=== PATIENT | female | born 2000 | race American Indian/Alaskan Native ===

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

== ENCOUNTER 2019-05-19 12:39 | Emergency (ER) | payer MEDICAID, OTHER ==
[2019-05-19 12:58] VITALS: BP 129/75
--- NOTE | 2019-05-19 12:58 | Event Note ---
ED Screening Note ED Screening Note: pt presents for heavy vaginal bleeding that began yesterday states she has irregular cycles states she is changing every hour lower back pain no abd pain no n/v/d no fever no dysuria PMHx anemia allergy to PCN PMHx schizophrenia and bipolar -states she is taking them daily no SI/HI, no hallucinations non smoker non drinker no drug use This initial assessment/diagnostic orders/clinical plan/treatment(s) is/are subject to change based on patients health status, clinical progression and re- assessment by fellow clinical providers in the ED. Further treatment and workup at subsequent clinical providers discretion. Patient/guardian urged not to elope from the ED as their condition may be serious if not clinically assessed and managed. Initial orders include: labs, UA
[2019-05-19 13:51] LABS: Basophils % (Auto) 0.7 % (0.0-1.8); Eosinophils % (Auto) 0.7 % (0.0-4.3); Hematocrit 28.6 % (30.3-42.9); Hemoglobin 8.7 gm/dl (10.1-14.3); Lymphocytes # (Auto) 0.9 K/mm3 (1.2-5.4); Lymphocytes % (Auto) 17.9 % (13.4-35.0); Mean Corpuscular HGB Conc 30 % (30-34); Monocytes # (Auto) 0.4 K/mm3 (0.0-0.8); Platelet Count 296 K/mm3 (140-440)
[2019-05-19 13:59] LABS: Mean Corpuscular Volume 68 fl (79-97)
[2019-05-19 14:12] LABS: BUN/Creatinine Ratio 17; Blood Urea Nitrogen 12 mg/dL (7-17); Calcium 8.9 mg/dL (8.4-10.2); Hemolysis Index 2
--- NOTE | 2019-05-19 15:06 | Emergency Department Report ---
ED General Adult HPI - General Chief complaint: Vaginal Bleeding Stated complaint: VAG BLEEDING Time Seen by Provider: 05/19/19 12:55 Source: patient Mode of arrival: Ambulatory Limitations: No Limitations - History of Present Illness Initial comments: The patient presents to the emergency department with a chief complaint of increased vaginal bleeding. The patient states she is currently on her cycle and she is having significant past medical clots and dark blood without pain. Patient states this is very unusual for her cycles and denies any use of any [id number] medications, herbs, or control pills. Patient denies any vaginal trauma or vaginal instrumentation -: Sudden Severity scale (0 -10): 0 Improves with: none Worsens with: none Associated Symptoms: denies other symptoms Treatments Prior to Arrival: none - Related Data Home Medications Medication Instructions Recorded Confirmed Last Taken Ciprofloxacin HCl [Ciprofloxacin 500 mg PO Q12H 12/14/17 01/05/18 12/12/17 13:00 TAB] 1 Ferrous Sulfate 325 mg PO TID 12/14/17 01/05/18 01/05/18 08:00 Nitrofurantoin [place]/M-Cryst 100 mg PO DAILY 01/05/18 01/05/18 01/05/18 08:00 [Macrobid CAP] Vit D3/Folic Acid/B2/B6/B12 1 each PO DAILY 01/05/18 01/05/18 1 Day Ago [Folgard Tablet] ~01/04/18 Previous Rx's Medication Instructions Recorded Last Taken Type Fluconazole [Diflucan TAB] 150 mg PO ONCE #1 tablet 08/07/18 Unknown Rx Valacyclovir HCl [Valtrex] 1,000 mg PO BID #20 tab 08/07/18 Unknown Rx Ketorolac [Toradol] 10 mg PO Q6H PRN #12 tablet 05/19/19 Unknown Rx Allergies Allergy/AdvReac Type Severity Reaction Status Date / Time [place] And Derivatives Allergy Itching Verified 12/14/17 17:16 ED Review of Systems ROS: Stated complaint: VAG BLEEDING Other details as noted in HPI Comment: All other systems reviewed and negative Constitutional: denies: chills, fever Eyes: denies: eye pain, eye discharge, vision change ENT: denies: ear pain, throat pain Respiratory: denies: cough, shortness of breath, wheezing Cardiovascular: denies: chest pain, palpitations Endocrine: no symptoms reported Gastrointestinal: denies: abdominal pain, nausea, diarrhea Genitourinary: denies: urgency, dysuria, discharge Musculoskeletal: denies: back pain, joint swelling, arthralgia Skin: denies: rash, lesions Neurological: denies: headache, weakness, paresthesias Psychiatric: denies: anxiety, depression Hematological/Lymphatic: denies: easy bleeding, easy bruising ED Past Medical Hx - Past Medical History Previous Medical History?: Yes Hx Hypertension: No Hx Diabetes: No Hx Deep Vein Thrombosis: No Hx Renal Disease: Yes Hx Sickle Cell Disease: No Hx Seizures: No Hx Psychiatric Treatment: Yes (schizophrenia, bipolar) Hx Asthma: No Hx HIV: No Additional medical history: anemia - Surgical History Past Surgical History?: No - Social History Smoking Status: Never Smoker Substance Use Type: None - Medications Home Medications: Home Medications Medication Instructions Recorded Confirmed Last Taken Type Ciprofloxacin HCl [Ciprofloxacin 500 mg PO Q12H 12/14/17 01/05/18 12/12/17 13:00 History TAB] 1 Ferrous Sulfate 325 mg PO TID 12/14/17 01/05/18 01/05/18 08:00 History Nitrofurantoin [place]/M-Cryst 100 mg PO DAILY 01/05/18 01/05/18 01/05/18 08:00 History [Macrobid CAP] Vit D3/Folic Acid/B2/B6/B12 1 each PO DAILY 01/05/18 01/05/18 1 Day Ago History [Folgard Tablet] ~01/04/18 Fluconazole [Diflucan TAB] 150 mg PO ONCE #1 tablet 08/07/18 Unknown Rx Valacyclovir HCl [Valtrex] 1,000 mg PO BID #20 tab 08/07/18 Unknown Rx Ketorolac [Toradol] 10 mg PO Q6H PRN #12 tablet 05/19/19 Unknown Rx ED Physical Exam - General Limitations: No Limitations General appearance: alert, in no apparent distress - Head Head exam: Present: atraumatic, normocephalic - Eye Eye exam: Present: normal appearance, PERRL, EOMI - ENT ENT exam: Present: mucous membranes moist - Neck Neck exam: Present: normal inspection - Respiratory Respiratory exam: Present: normal lung sounds bilaterally. Absent: respiratory distress - Cardiovascular Cardiovascular Exam: Present: regular rate, normal rhythm. Absent: systolic murmur, diastolic murmur, rubs, gallop - GI/Abdominal GI/Abdominal exam: Present: soft, normal bowel sounds. Absent: distended, tenderness - External exam: Present: other (deferred) Speculum exam: Present: other (deferred) Bi-manual exam: Present: other (deferred) - Extremities Exam Extremities exam: Present: normal inspection - Back Exam Back exam: Present: normal inspection - Neurological Exam Neurological exam: Present: alert, oriented X3 - Psychiatric Psychiatric exam: Present: normal affect, normal mood - Skin Skin exam: Present: warm, dry, intact, normal color. Absent: rash ED Course Vital Signs 05/19/19 12:55 Temperature 98 F Pulse Rate 124 H Respiratory 16 Rate Blood Pressure 129/75 O2 Sat by Pulse 99 Oximetry ED Medical Decision Making - Lab Data Result diagrams: 05/19/19 13:30 05/19/19 13:30 Lab Results 05/19/19 05/19/19 05/19/19 Range/Units 13:30 13:30 13:30 WBC 4.9 (4.5-11.0) K/mm3 RBC 4.20 (3.65-5.03) M/mm3 Hgb 8.7 L (10.1-14.3) gm/dl Hct 28.6 L (30.3-42.9) % MCV 68 L (79-97) fl MCH 21 L (28-32) pg MCHC 30 (30-34) % RDW 19.0 H (13.2-15.2) % Plt Count 296 (140-440) K/mm3 Lymph % (Auto) 17.9 (13.4-35.0) % [place] % (Auto) 9.0 H (0.0-7.3) % Eos % (Auto) 0.7 (0.0-4.3) % Baso % (Auto) 0.7 (0.0-1.8) % Lymph # 0.9 L (1.2-5.4) K/mm3 [place] # 0.4 (0.0-0.8) K/mm3 Eos # 0.0 (0.0-0.4) K/mm3 Baso # 0.0 (0.0-0.1) K/mm3 Seg Neutrophils % 71.7 H (40.0-70.0) % Seg Neutrophils # 3.5 (1.8-7.7) K/mm3 Sodium 139 (137-145) mmol/L Potassium 3.9 (3.6-5.0) mmol/L Chloride 104.6 (98-107) mmol/L Carbon Dioxide 24 (22-30) mmol/L Anion Gap 14 mmol/L BUN 12 (7-17) mg/dL Creatinine 0.7 (0.7-1.2) mg/dL Estimated GFR > 60 ml/min BUN/Creatinine Ratio 17 % Glucose 96 (65-100) mg/dL Calcium 8.9 (8.4-10.2) mg/dL HCG, Qual Negative (Negative) Urine Color (Yellow) Urine Turbidity (Clear) Urine pH (5.0-7.0) Ur Specific [place] (1.003-1.030) Urine Protein (Negative) mg/dL Urine Glucose (UA) (Negative) mg/dL Urine Ketones (Negative) mg/dL Urine Blood (Negative) Urine Nitrite (Negative) Urine Bilirubin (Negative) Urine Urobilinogen (<2.0) mg/dL Ur Leukocyte Esterase (Negative) Urine WBC (Auto) (0.0-6.0) /HPF Urine RBC (Auto) (0.0-6.0) /HPF U Epithel Cells (Auto) (0-13.0) /HPF Urine Mucus /HPF Urine Yeast (Budding) /HPF Urine Sperm (STUDIO COORDINATOR) /HPF 05/19/19 Range/Units 14:09 WBC (4.5-11.0) K/mm3 RBC (3.65-5.03) M/mm3 Hgb (10.1-14.3) gm/dl Hct (30.3-42.9) % MCV (79-97) fl MCH (28-32) pg MCHC (30-34) % RDW (13.2-15.2) % Plt Count (140-440) K/mm3 Lymph % (Auto) (13.4-35.0) % [place] % (Auto) (0.0-7.3) % Eos % (Auto) (0.0-4.3) % Baso % (Auto) (0.0-1.8) % Lymph # (1.2-5.4) K/mm3 [place] # (0.0-0.8) K/mm3 Eos # (0.0-0.4) K/mm3 Baso # (0.0-0.1) K/mm3 Seg Neutrophils % (40.0-70.0) % Seg Neutrophils # (1.8-7.7) K/mm3 Sodium (137-145) mmol/L Potassium (3.6-5.0) mmol/L Chloride (98-107) mmol/L Carbon Dioxide (22-30) mmol/L Anion Gap mmol/L BUN (7-17) mg/dL Creatinine (0.7-1.2) mg/dL Estimated GFR ml/min BUN/Creatinine Ratio % Glucose (65-100) mg/dL Calcium (8.4-10.2) mg/dL HCG, Qual (Negative) Urine Color Yellow (Yellow) Urine Turbidity Slightly-cloudy (Clear) Urine pH 5.0 (5.0-7.0) Ur Specific [place] 1.031 H (1.003-1.030) Urine Protein 30 mg/dl (Negative) mg/dL Urine Glucose (UA) Neg (Negative) mg/dL Urine Ketones Neg (Negative) mg/dL Urine Blood Lg (Negative) Urine Nitrite Neg (Negative) Urine Bilirubin Neg (Negative) Urine Urobilinogen < 2.0 (<2.0) mg/dL Ur Leukocyte Esterase Tr (Negative) Urine WBC (Auto) 23.0 H (0.0-6.0) /HPF Urine RBC (Auto) > 182.0 (0.0-6.0) /HPF U Epithel Cells (Auto) 4.0 (0-13.0) /HPF Urine Mucus 2+ /HPF Urine Yeast (Budding) 1+ /HPF Urine Sperm Few (STUDIO COORDINATOR) /HPF - Radiology Data Radiology results: report reviewed - Medical Decision Making discussed results with patient Critical care attestation.: If time is entered above; I have spent that time in minutes in the direct care of this critically ill patient, excluding procedure time. ED Disposition Clinical Impression: DUB (dysfunctional uterine bleeding) Disposition: DC-01 TO HOME OR SELFCARE Is pt being admited?: No Does the pt Need Aspirin: No Condition: Stable Instructions: Dysfunctional Uterine Bleeding (ED) Additional Instructions: return if worse Referrals: MELANIE GREENBERG MD [Primary Care Provider] - 3-5 Days [facility] [Provider Group] - 3-5 Days Time of Disposition: 16:10
[2019-05-19 15:15] LABS: Bilirubin,Urine NEG (Negative); Blood,Urine LG (Negative); Color,Urine Yellow (Yellow); Mucus,Urine 2+ /HPF; Sperm,Urine FEW /HPF (NP); Urobilinogen,Urine < 2.0 mg/dL (<2.0)
[2019-05-19 15:17] LABS: RBC,Urine > 182.0 /HPF (0.0-6.0)
--- NOTE | 2019-05-19 15:51 | Ultrasound Report ---
ULTRASOUND PELVIC COMPLETE ULTRASOUND TRANSVAGINAL HISTORY: Vaginal bleeding TECHNIQUE: Transabdominal and transvaginal ultrasound with color Doppler imaging. COMPARISON: None. FINDINGS: The uterus is anteflexed and measures 8.3 x 4.2 x 5.5 cm. No uterine mass is identified. Normal cervi x. The endometrial stripe is unremarkable measuring 5 mm. The ovaries are normal size, contour and echotexture. No adnexal cyst or mass. The right ovary measur es 2.5 x 2.0 x 2.5 cm. The left ovary measures 3.4 x 2.1 x 3.3 cm. Trace free pelvic fluid is likely physiologic. IMPRESSION: Unremarkable pelvic ultrasounds. Signer Name: Valdez Tyler Jr, MD Signed: 05/19/2019 3:47 PM Workstation Name: [id number]
== END 2019-05-19 16:15 | disposition home or self-care (01) ==
LOC: ED 12:39
DX: N93.8 Other specified abnormal uterine and vaginal bleeding (principal); F31.9 Bipolar disorder, unspecified; F20.9 Schizophrenia, unspecified; Z86.2 Personal history of diseases of the blood and blood-forming organs and certain disorders involving the immune mechanism; Z91.018 Allergy to other foods; Z79.899 Other long term (current) drug therapy
CPT/HCPCS: 36415; 76830; 76856; 80048; 81001; 84703; 85025; 87086

== ENCOUNTER 2019-07-28 04:27 | Emergency (ER) | payer MEDICAID ==
[2019-07-28 04:46] VITALS: BP 115/62
[2019-07-28 05:25] LABS: Basophils % (Auto) 0.7 % (0.0-1.8); Eosinophils # (Auto) 0.1 K/mm3 (0.0-0.4); Eosinophils % (Auto) 1.3 % (0.0-4.3); Lymphocytes % (Auto) 23.1 % (13.4-35.0); Mean Corpuscular HGB Conc 30 % (30-34); Monocytes # (Auto) 0.2 K/mm3 (0.0-0.8); Monocytes % (Auto) 5.6 % (0.0-7.3); Platelet Count 314 K/mm3 (140-440); Red Blood Count 4.39 M/mm3 (3.65-5.03); Red Cell Distribution Width 18.1 % (13.2-15.2)
[2019-07-28 05:26] LABS: Hematocrit 29.1 % (30.3-42.9); Hemoglobin 8.7 gm/dl (10.1-14.3); Mean Corpuscular Volume 66 fl (79-97)
[2019-07-28 05:42] LABS: Alanine Aminotransferase 9 units/L (7-56); Albumin 4.1 g/dL (3.9-5); BUN/Creatinine Ratio 17; Blood Urea Nitrogen 10 mg/dL (7-17); Calcium 8.6 mg/dL (8.4-10.2); Hemolysis Index 4
--- NOTE | 2019-07-28 06:27 | XRay Report ---
CHEST 1 VIEW 07/28/2019 6:11 AM INDICATION / CLINICAL INFORMATION: Chest Pain. COMPARISON: None available. FINDINGS: SUPPORT DEVICES: None. HEART / MEDIASTINUM: No significant abnormality. LUNGS / PLEURA: No significant pulmonary or pleural abnormality. No pneumothorax. ADDITIONAL FINDINGS: Mild right convex scoliosis of the thoracolumbar spine. IMPRESSION: 1. No acute findings. Signer Name: Yordy Cruz MD Signed: 07/28/2019 6:23 AM Workstation Name: [id number]
[2019-07-28] MEDS ORDERED: ALUM-MAG HYDROXIDE-SIMETHICONE 200-200-20MG/5ML ORAL LIQD 30 ML PO ONE (06:31)
[2019-07-28] MEDS ORDERED: DICYCLOMINE 20 MG TAB PO ONE (06:31)
[2019-07-28] MEDS ORDERED: LIDOCAINE VISCOUS 2% 15 ML ORAL LIQD PO ONE (06:31)
--- NOTE | 2019-07-28 06:34 | Emergency Department Report ---
ED Abdominal Pain HPI - General Chief Complaint: Chest Pain Stated Complaint: CP/ABD PAIN/NAUSEA Time Seen by Provider: 07/28/19 05:56 Source: patient Mode of arrival: Ambulatory Limitations: No Limitations - History of Present Illness Initial Comments: Patient is a 18-year-old female who presents the emergency room with complaints of upper abdominal pain for 3 days. she states she has associated urinary frequency. She denies any nausea, vomiting, diarrhea, fever, dysuria, any other symptoms. she states that she had a normal bowel movement today. she denies any surgeries on her abdomen. She states her last menstrual cycle was in May; she states she has abnormal cycles. She denies any past medical history. she states she has an allergy to penicillin. - Related Data Home Medications Medication Instructions Recorded Confirmed Last Taken Ciprofloxacin HCl [Ciprofloxacin 500 mg PO Q12H 12/14/17 01/05/18 12/12/17 13:00 TAB] 1 Ferrous Sulfate 325 mg PO TID 12/14/17 01/05/18 01/05/18 08:00 Nitrofurantoin [place]/M-Cryst 100 mg PO DAILY 01/05/18 01/05/18 01/05/18 08:00 [Macrobid CAP] Vit D3/Folic Acid/B2/B6/B12 1 each PO DAILY 01/05/18 01/05/18 1 Day Ago [Folgard Tablet] ~01/04/18 Previous Rx's Medication Instructions Recorded Last Taken Type Fluconazole [Diflucan TAB] 150 mg PO ONCE #1 tablet 08/07/18 Unknown Rx Valacyclovir HCl [Valtrex] 1,000 mg PO BID #20 tab 08/07/18 Unknown Rx Ketorolac [Toradol] 10 mg PO Q6H PRN #12 tablet 05/19/19 Unknown Rx Famotidine [Pepcid] 40 mg PO QHS #30 tablet 07/28/19 Unknown Rx Ondansetron [Zofran Odt] 4 mg PO Q8HR PRN #10 tab.rapdis 07/28/19 Unknown Rx cephALEXin [Keflex] 500 mg PO BID 7 Days #14 cap 07/28/19 Unknown Rx Allergies Allergy/AdvReac Type Severity Reaction Status Date / Time [place] And Derivatives Allergy Itching Verified 12/14/17 17:16 ED Review of Systems ROS: Stated complaint: CP/ABD PAIN/NAUSEA Other details as noted in HPI Comment: All other systems reviewed and negative ED Past Medical Hx - Past Medical History Hx Hypertension: No Hx Diabetes: No Hx Deep Vein Thrombosis: No Hx Renal Disease: Yes Hx Sickle Cell Disease: No Hx Seizures: No Hx Psychiatric Treatment: Yes (bipolar) Hx Asthma: No Hx HIV: No Additional medical history: anemia - Surgical History Past Surgical History?: No - Social History Smoking Status: Never Smoker Substance Use Type: None - Medications Home Medications: Home Medications Medication Instructions Recorded Confirmed Last Taken Type Ciprofloxacin HCl [Ciprofloxacin 500 mg PO Q12H 12/14/17 01/05/18 12/12/17 13:00 History TAB] 1 Ferrous Sulfate 325 mg PO TID 12/14/17 01/05/18 01/05/18 08:00 History Nitrofurantoin [place]/M-Cryst 100 mg PO DAILY 01/05/18 01/05/18 01/05/18 08:00 H istory [Macrobid CAP] Vit D3/Folic Acid/B2/B6/B12 1 each PO DAILY 01/05/18 01/05/18 1 Day Ago History [Folgard Tablet] ~01/04/18 Fluconazole [Diflucan TAB] 150 mg PO ONCE #1 tablet 08/07/18 Unknown Rx Valacyclovir HCl [Valtrex] 1,000 mg PO BID #20 tab 08/07/18 Unknown Rx Ketorolac [Toradol] 10 mg PO Q6H PRN #12 tablet 05/19/19 Unknown Rx Famotidine [Pepcid] 40 mg PO QHS #30 tablet 07/28/19 Unknown Rx Ondansetron [Zofran Odt] 4 mg PO Q8HR PRN #10 tab.rapdis 07/28/19 Unknown Rx cephALEXin [Keflex] 500 mg PO BID 7 Days #14 cap 07/28/19 Unknown Rx ED Physical Exam - General Limitations: No Limitations General appearance: alert, in no apparent distress - Head Head exam: Present: atraumatic, normocephalic - Eye Eye exam: Present: normal appearance - ENT ENT exam: Present: mucous membranes moist - Respiratory Respiratory exam: Present: normal lung sounds bilaterally. Absent: respiratory distress, wheezes, rales, rhonchi, stridor, chest wall tenderness, accessory muscle use, decreased breath sounds, prolonged expiratory - Cardiovascular Cardiovascular Exam: Present: regular rate, normal rhythm, normal heart sounds. Absent: systolic murmur, rubs, gallop - GI/Abdominal GI/Abdominal exam: Present: soft, normal bowel sounds. Absent: distended, tenderness, guarding, rebound, rigid - Neurological Exam Neurological exam: Present: alert, oriented X3 - Psychiatric Psychiatric exam: Present: normal affect, normal mood - Skin Skin exam: Present: warm, dry, intact ED Course Vital Signs 07/28/19 04:40 Temperature 98.7 F Pulse Rate 90 Respiratory 18 Rate Blood Pressure 115/62 O2 Sat by Pulse 100 Oximetry ED Medical Decision Making - Lab Data Result diagrams: 07/28/19 04:58 07/28/19 04:58 Lab Results 07/28/19 07/28/19 07/28/19 Range/Units 04:58 04:58 04:58 WBC 4.4 L (4.5-11.0) K/mm3 RBC 4.39 (3.65-5.03) M/mm3 Hgb 8.7 L (10.1-14.3) gm/dl Hct 29.1 L (30.3-42.9) % MCV 66 L (79-97) fl MCH 20 L (28-32) pg MCHC 30 (30-34) % RDW 18.1 H (13.2-15.2) % Plt Count 314 (140-440) K/mm3 Lymph % (Auto) 23.1 (13.4-35.0) % [place] % (Auto) 5.6 (0.0-7.3) % Eos % (Auto) 1.3 (0.0-4.3) % Baso % (Auto) 0.7 (0.0-1.8) % Lymph # 1.0 L (1.2-5.4) K/mm3 [place] # 0.2 (0.0-0.8) K/mm3 Eos # 0.1 (0.0-0.4) K/mm3 Baso # 0.0 (0.0-0.1) K/mm3 Seg Neutrophils % 69.3 (40.0-70.0) % Seg Neutrophils # 3.0 (1.8-7.7) K/mm3 Sodium 139 (137-145) mmol/L Potassium 3.6 (3.6-5.0) mmol/L Chloride 104.9 (98-107) mmol/L Carbon Dioxide 25 (22-30) mmol/L Anion Gap 13 mmol/L BUN 10 (7-17) mg/dL Creatinine 0.6 L (0.7-1.2) mg/dL Estimated GFR > 60 ml/min BUN/Creatinine Ratio 17 % Glucose 155 H (65-100) mg/dL Calcium 8.6 (8.4-10.2) mg/dL Total Bilirubin 0.30 (0.1-1.2) mg/dL AST 11 (5-40) units/L ALT 9 (7-56) units/L Alkaline Phosphatase 59 (35-129) units/L Total Protein 7.9 (6.3-8.2) g/dL Albumin 4.1 (3.9-5) g/dL Albumin/Globulin Ratio 1.1 % HCG, Qual Negative (Negative) Urine Color (Yellow) Urine Turbidity (Clear) Urine pH (5.0-7.0) Ur Specific [place] (1.003-1.030) Urine Protein (Negative) mg/dL Urine Glucose (UA) (Negative) mg/dL Urine Ketones (Negative) mg/dL Urine Blood (Negative) Urine Nitrite (Negative) Urine Bilirubin (Negative) Urine Urobilinogen (<2.0) mg/dL Ur Leukocyte Esterase (Negative) Urine WBC (Auto) (0.0-6.0) /HPF Urine RBC (Auto) (0.0-6.0) /HPF U Epithel Cells (Auto) (0-13.0) /HPF Urine Bacteria (Auto) (Negative) /HPF Urine Mucus /HPF 07/28/19 Range/Units Unknown WBC (4.5-11.0) K/mm3 RBC (3.65-5.03) M/mm3 Hgb (10.1-14.3) gm/dl Hct (30.3-42.9) % MCV (79-97) fl MCH (28-32) pg MCHC (30-34) % RDW (13.2-15.2) % Plt Count (140-440) K/mm3 Lymph % (Auto) (13.4-35.0) % [place] % (Auto) (0.0-7.3) % Eos % (Auto) (0.0-4.3) % Baso % (Auto) (0.0-1.8) % Lymph # (1.2-5.4) K/mm3 [place] # (0.0-0.8) K/mm3 Eos # (0.0-0.4) K/mm3 Baso # (0.0-0.1) K/mm3 Seg Neutrophils % (40.0-70.0) % Seg Neutrophils # (1.8-7.7) K/mm3 Sodium (137-145) mmol/L Potassium (3.6-5.0) mmol/L Chloride (98-107) mmol/L Carbon Dioxide (22-30) mmol/L Anion Gap mmol/L BUN (7-17) mg/dL Creatinine (0.7-1.2) mg/dL Estimated GFR ml/min BUN/Creatinine Ratio % Glucose (65-100) mg/dL Calcium (8.4-10.2) mg/dL Total Bilirubin (0.1-1.2) mg/dL AST (5-40) units/L ALT (7-56) units/L Alkaline Phosphatase (35-129) units/L Total Protein (6.3-8.2) g/dL Albumin (3.9-5) g/dL Albumin/Globulin Ratio % HCG, Qual (Negative) Urine Color Yellow (Yellow) Urine Turbidity Slightly-cloudy (Clear) Urine pH 5.0 (5.0-7.0) Ur Specific [place] 1.029 (1.003-1.030) Urine Protein <15 mg/dl (Negative) mg/dL Urine Glucose (UA) Neg (Negative) mg/dL Urine Ketones Neg (Negative) mg/dL Urine Blood Neg (Negative) Urine Nitrite Neg (Negative) Urine Bilirubin Neg (Negative) Urine Urobilinogen < 2.0 (<2.0) mg/dL Ur Leukocyte Esterase Mod (Negative) Urine WBC (Auto) 15.0 H (0.0-6.0) /HPF Urine RBC (Auto) 4.0 (0.0-6.0) /HPF U Epithel Cells (Auto) 7.0 (0-13.0) /HPF Urine Bacteria (Auto) 1+ (Negative) /HPF Urine Mucus 2+ /HPF - Medical Decision Making Patient is a 18-year-old female who presents the emergency room with complaints of upper abdominal pain for 3 days. she states she has associated urinary frequency. She denies any nausea, vomiting, diarrhea, fever, dysuria, any other symptoms. she states that she had a normal bowel movement today. she denies any surgeries on her abdomen. She states her last menstrual cycle was in May; she states she has abnormal cycles. She denies any past medical history. she states she has an allergy to penicillin. vitals are normal. labs are stable, H/H is stable, glucose mildly elevated at 155, discussed with pt she states she recently ate. UA with WBCs and moderate leukocyte esterase. pt given GI cocktail and pt symptoms improved. will tx pt for UTI and GERD. given prescription for pepcid, keflex, and zofran. advised pt to please take medication as prescribed. please increase your water intake. Follow up with a primary care doctor in the next 2-3 days. Return to the emergency room for any new or worsening symptoms. - Differential Diagnosis UTI, GERD, gastritis, PUD Critical care attestation.: If time is entered above; I have spent that time in minutes in the direct care of this critically ill patient, excluding procedure time. ED Disposition Clinical Impression: Upper abdominal pain UTI (urinary tract infection) Qualifiers: Urinary tract infection type: acute cystitis Hematuria presence: without hematuria Qualified Code(s): N30.00 - Acute cystitis without hematuria Disposition: - TO HOME OR SELFCARE Is pt being admited?: No Does the pt Need Aspirin: No Condition: Stable Instructions: Gastroesophageal Reflux in Children (ED), Urinary Tract Infection in Women (ED), Diet for Ulcers and Gastritis (ED) Additional Instructions: Please take medication as prescribed. please increase your water intake. Follow up with a primary care doctor in the next 2-3 days. Return to the emergency room for any new or worsening symptoms. Prescriptions: Famotidine [Pepcid] 40 mg PO QHS #30 tablet cephALEXin [Keflex] 500 mg PO BID 7 Days #14 cap Ondansetron [Zofran Odt] 4 mg PO Q8HR PRN #10 tab.rapdis PRN Reason: nausea Referrals: [facility] [Provider Group] - 3-5 Days Time of Disposition: 07:36 Print Language: KYRGYZ
[2019-07-28 07:03] LABS: Bacteria,Urine 1+ /HPF (Negative); Bilirubin,Urine NEG (Negative); Blood,Urine NEG (Negative); Color,Urine Yellow (Yellow); Mucus,Urine 2+ /HPF; Protein,Urine <15 mg/dL mg/dL (Negative); Urobilinogen,Urine < 2.0 mg/dL (<2.0)
== END 2019-07-28 08:03 | disposition home or self-care (01) ==
LOC: ED 04:27
DX: N39.0 Urinary tract infection, site not specified (principal); F31.9 Bipolar disorder, unspecified; Z86.2 Personal history of diseases of the blood and blood-forming organs and certain disorders involving the immune mechanism; Z79.899 Other long term (current) drug therapy; Z91.018 Allergy to other foods
CPT/HCPCS: 36415; 71045; 80053; 81001; 84703; 85025; 87086; 93005; 93010

== ENCOUNTER 2019-12-04 14:01 | Emergency (ER) | payer MEDICAID ==
[2019-12-04] MEDS ORDERED: IBUPROFEN 600 MG TAB PO ONE (21:25)
[2019-12-04] MEDS ORDERED: BUTALB/ACETAMINOPHEN/CAFFEINE TAB PO ONE (21:25)
[2019-12-04] MEDS ORDERED: ONDANSETRON 4 MG ODT TAB PO ONE (21:26)
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
[2019-12-05 00:14] VITALS: BP 98/62
== END 2019-12-05 00:15 | disposition home or self-care (01) ==
LOC: ED 14:01
DX: S16.1XXA Strain of muscle, fascia and tendon at neck level, initial encounter (principal); S00.03XA Contusion of scalp, initial encounter; G44.309 Post-traumatic headache, unspecified, not intractable; N28.9 Disorder of kidney and ureter, unspecified; F31.9 Bipolar disorder, unspecified; Z79.899 Other long term (current) drug therapy; Z91.018 Allergy to other foods; Y08.89XA Assault by other specified means, initial encounter; Y93.89 Activity, other specified; Y92.89 Other specified places as the place of occurrence of the external cause; Y99.8 Other external cause status
CPT/HCPCS: 70450; Q0162

== ENCOUNTER 2020-01-24 10:49 | Emergency (ER) | payer MEDICAID ==
[2020-01-24 10:55] VITALS: BP 123/74
--- NOTE | 2020-01-24 11:08 | Emergency Department Report ---
ED Psych HPI - General Chief Complaint: Psych Stated Complaint: SUCIDIAL Time Seen by Provider: 01/24/20 11:00 Source: EMS Mode of arrival: Ambulatory - History of Present Illness Initial Comments: 19-year-old female with history of bipolar disorder, presents to ED with complaint of depression and suicidal ideation. Patient states she has been feeling suicidal for the past 2 to 3 days. She states this is because her parents are trying to take custody of her daughter. Patient reports she is compliant with her psychiatric medications. Patient is suicidal, however has no plan at the moment. She denies any drug or alcohol use. MD Complaint: suicidal ideation, feels depressed -: days(s) (3) Associated Psychiatric Symptoms: depression, suicidal ideation History of same: Yes Quality: constant Improves With: none Worsens With: none Associated Symptoms: denies other symptoms Treatments Prior to Arrival: none If Self Harm: admits thoughts of - Related Data Home Medications Medication Instructions Recorded Confirmed Last Taken Ciprofloxacin HCl [Ciprofloxacin 500 mg PO Q12H 12/14/17 01/05/18 12/12/17 13:00 TAB] 1 Ferrous Sulfate 325 mg PO TID 12/14/17 01/05/18 01/05/18 08:00 Nitrofurantoin [place]/M-Cryst 100 mg PO DAILY 01/05/18 01/05/18 01/05/18 08:00 [Macrobid CAP] Vit D3/Folic Acid/B2/B6/B12 1 each PO DAILY 01/05/18 01/05/18 1 Day Ago [Folgard Tablet] ~01/04/18 Previous Rx's Medication Instructions Recorded Last Taken Type Fluconazole [Diflucan TAB] 150 mg PO ONCE #1 tablet 08/07/18 Unknown Rx Valacyclovir HCl [Valtrex] 1,000 mg PO BID #20 tab 08/07/18 Unknown Rx Ketorolac [Toradol] 10 mg PO Q6H PRN #12 tablet 05/19/19 Unknown Rx Famotidine [Pepcid] 40 mg PO QHS #30 tablet 07/28/19 Unknown Rx Ondansetron [Zofran Odt] 4 mg PO Q8HR PRN #10 tab.rapdis 07/28/19 Unknown Rx cephALEXin [Keflex] 500 mg PO BID 7 Days #14 cap 07/28/19 Unknown Rx Butalb/Acetamin/Caff 50-325-40 1 tab PO Q6HR PRN #12 tab 12/04/19 Unknown Rx [Fioricet 50-325-40] Cyclobenzaprine [Flexeril] 10 mg PO Q8H PRN #15 tablet 12/04/19 Unknown Rx Naproxen 500 mg PO Q12H PRN #20 tablet 12/04/19 Unknown Rx Ondansetron [Zofran Odt] 4 mg PO Q6HR PRN #12 tab.rapdis 12/04/19 Unknown Rx Docusate Sodium [Colace] 100 mg PO BID PRN #30 capsule 01/24/20 Unknown Rx Ferrous Sulfate [Ferrous Sulfate 324 mg PO TID #90 tablet. 01/24/20 Unknown Rx 324 MG] Allergies Allergy/AdvReac Type Severity Reaction Status Date / Time Hinds And Derivatives Allergy Itching Verified 12/14/17 17:16 ED Review of Systems ROS: Stated complaint: SUCIDIAL Other details as noted in HPI Comment: All other systems reviewed and negative Psychiatric: depression, suicidal thoughts. denies: auditory hallucinations, visual hallucinations, homicidal thoughts ED Past Medical Hx - Past Medical History Hx Hypertension: No Hx Diabetes: No Hx Deep Vein Thrombosis: No Hx Renal Disease: Yes Hx Sickle Cell Disease: No Hx Seizures: No Hx Psychiatric Treatment: Yes (bipolar) Hx Asthma: No Hx HIV: No Additional medical history: anemia - Social History Smoking Status: Current Every Day Smoker Substance Use Type: Alcohol - Medications Home Medications: Home Medications Medication Instructions Recorded Confirmed Last Taken Type Ciprofloxacin HCl [Ciprofloxacin 500 mg PO Q12H 12/14/17 01/05/18 12/12/17 13:00 History TAB] 1 Ferrous Sulfate 325 mg PO TID 12/14/17 01/05/18 01/05/18 08:00 History Nitrofurantoin [place]/M-Cryst 100 mg PO DAILY 01/05/18 01/05/18 01/05/18 08:00 History [Macrobid CAP] Vit D3/Folic Acid/B2/B6/B12 1 each PO DAILY 01/05/18 01/05/18 1 Day Ago History [Folgard Tablet] ~01/04/18 Fluconazole [Diflucan TAB] 150 mg PO ONCE #1 tablet 08/07/18 Unknown Rx Valacyclovir HCl [Valtrex] 1,000 mg PO BID #20 tab 08/07/18 Unknown Rx Ketorolac [Toradol] 10 mg PO Q6H PRN #12 tablet 05/19/19 Unknown Rx Famotidine [Pepcid] 40 mg PO QHS #30 tablet 07/28/19 Unknown Rx Ondansetron [Zofran Odt] 4 mg PO Q8HR PRN #10 tab.rapdis 07/28/19 Unknown Rx cephALEXin [Keflex] 500 mg PO BID 7 Days #14 cap 07/28/19 Unknown Rx Butalb/Acetamin/Caff 50-325-40 1 tab PO Q6HR PRN #12 tab 12/04/19 Unknown Rx [Fioricet 50-325-40] Cyclobenzaprine [Flexeril] 10 mg PO Q8H PRN #15 tablet 12/04/19 Unknown Rx Naproxen 500 mg PO Q12H PRN #20 tablet 12/04/19 Unknown Rx Ondansetron [Zofran Odt] 4 mg PO Q6HR PRN #12 tab.rapdis 12/04/19 Unknown Rx Docusate Sodium [Colace] 100 mg PO BID PRN #30 capsule 01/24/20 Unknown Rx Ferrous Sulfate [Ferrous Sulfate 324 mg PO TID #90 tablet.dr 01/24/20 Unknown Rx 324 MG] ED Physical Exam - General Limitations: No Limitations General appearance: alert, in no apparent distress - Head Head exam: Present: atraumatic, normocephalic - Eye Eye exam: Present: normal appearance, EOMI - ENT ENT exam: Present: mucous membranes moist - Neck Neck exam: Present: normal inspection - Respiratory Respiratory exam: Present: normal lung sounds bilaterally. Absent: respiratory distress - Cardiovascular Cardiovascular Exam: Present: regular rate, normal rhythm - GI/Abdominal GI/Abdominal exam: Absent: distended - Extremities Exam Extremities exam: Present: normal inspection - Neurological Exam Neurological exam: Present: alert, oriented X3 - Psychiatric Psychiatric exam: Present: suicidal ideation, other (sad affect) - Skin Skin exam: Present: warm, dry, intact, normal color ED Course Vital Signs 01/24/20 10:52 Temperature 99.2 F Pulse Rate 90 Respiratory 18 Rate Blood Pressure 123/74 O2 Sat by Pulse 99 Oximetry - Reevaluation(s) Reevaluation #1: 01/24/20 12:12 Hb 7.3; spoke w/ pt, reports hx of anemia nd heavy menstrual periods. Not currently experincing any vaginal bleeding, dizziness, chest pain, SOB. Currently asymptomatic. ED Medical Decision Making - Lab Data Result diagrams: 01/24/20 11:14 01/24/20 11:14 - Medical Decision Making - Hb 7.3, which is above the threshold for transfusion Critical care attestation.: If time is entered above; I have spent that time in minutes in the direct care of this critically ill patient, excluding procedure time. ED Disposition Clinical Impression: Iron deficiency anemia, Depression, UTI (urinary tract infection) Condition: Stable Instructions: Iron Deficiency Anemia (ED) Prescriptions: Docusate Sodium [Colace] 100 mg PO BID PRN #30 capsule PRN Reason: Constipation Ferrous Sulfate [Ferrous Sulfate 324 MG] 324 mg PO TID #90 tablet.dr Referrals: DAVID ODOM MD [Staff Physician] - 3-5 Days
[2020-01-24 11:47] LABS: Basophils % (Auto) 0.4 % (0.0-1.8); Eosinophils % (Auto) 0.2 % (0.0-4.3); Lymphocytes # (Auto) 0.9 K/mm3 (1.2-5.4); Mean Corpuscular HGB Conc 28 % (30-34); Monocytes # (Auto) 0.3 K/mm3 (0.0-0.8); Monocytes % (Auto) 7.2 % (0.0-7.3); Platelet Count 329 K/mm3 (140-440); Red Blood Count 4.13 M/mm3 (3.65-5.03); Red Cell Distribution Width 18.7 % (13.2-15.2)
[2020-01-24 12:02] LABS: Bacteria,Urine 1+ /HPF (Negative); Bilirubin,Urine NEG (Negative); Blood,Urine NEG (Negative); Color,Urine Yellow (Yellow); Mucus,Urine FEW /HPF; Protein,Urine <15 mg/dL mg/dL (Negative); Urobilinogen,Urine < 2.0 mg/dL (<2.0)
[2020-01-24 12:06] LABS: Hematocrit 25.8 % (30.3-42.9); Hemoglobin 7.3 gm/dl (10.1-14.3); Mean Corpuscular Volume 63 fl (79-97)
[2020-01-24 12:08] LABS: BUN/Creatinine Ratio 15; Blood Urea Nitrogen 9 mg/dL (7-17); Calcium 9.5 mg/dL (8.4-10.2); Hemolysis Index 2
[2020-01-24 12:13] LABS: HCG Qualitative,Urine Negative (Negative)
[2020-01-24 12:17] LABS: Amphetamine Screen,Urine PRESUMPTIVE NEGATIVE; Benzodiazepines Screen,Urine PRESUMPTIVE NEGATIVE; Cannabinoid Screen,Urine PRESUMPTIVE NEGATIVE; Cocaine Screen,Urine PRESUMPTIVE NEGATIVE; Methadone Screen,Urine PRESUMPTIVE NEGATIVE; Opiate Screen,Urine PRESUMPTIVE NEGATIVE
[2020-01-24] MEDS ORDERED: SULFAMETHOXAZOLE/TRIMETHOPRIM 800/160MG DS TAB PO SCH (22:00)
== END 2020-01-24 18:00 ==
LOC: ED 10:49
DX: F32.9 Major depressive disorder, single episode, unspecified (principal); N39.0 Urinary tract infection, site not specified; D50.9 Iron deficiency anemia, unspecified; F31.9 Bipolar disorder, unspecified; F17.200 Nicotine dependence, unspecified, uncomplicated
CPT/HCPCS: 36415; 80048; 80307; 80320; 81001; 81025; 85025; 87086; 99285; G0480